=== PATIENT | female | born 1990 | race Caucasian/White ===

== ENCOUNTER 2023-12-05 18:33 | Emergency (ER) | payer OTHER ==
[~2023-12-05] VITALS: Ht 162.6 cm; Wt 85.5 kg
[2023-12-05 18:34] VITALS: BP 136/74; TEMP 98.8; O2SAT 100
[2023-12-05] MEDS: LIDOCAINE 5% (LIDODERM) PATCH TD ONE (20:15)
== END 2023-12-05 22:59 | disposition home or self-care (01) ==
LOC: M ED 18:33
DX: O44.02 Complete placenta previa NOS or without hemorrhage, second trimester (principal); Z3A.19 19 weeks gestation of pregnancy; Z91.030 Bee allergy status

== ENCOUNTER 2024-01-16 20:34 | Emergency (ER) | payer OTHER ==
[~2024-01-16] VITALS: Ht 162.6 cm; Wt 91.8 kg
[2024-01-16 20:34] VITALS: BP 136/73; TEMP 98; O2SAT 99
[2024-01-16] MEDS ORDERED: METO1TAB87 PO (22:14)
[2024-01-16] MEDS ORDERED: PRENTAB9 PO (22:14)
[2024-01-16] MEDS ORDERED: ECOT81TA5 PO (22:14)
[2024-01-16] MEDS ORDERED: COLA100C5 PO (22:14)
[2024-01-16 23:23] LABS: BASO % 0.2 % (0.0-1.0); EOS # 0.2 10^3/uL (0.0-0.5); EOS % 1.7 % (0.0-3.0); HEMATOCRIT 34.5 % (36.0-47.0); HEMOGLOBIN 11.5 g/dl (12.0-15.5); LYMPH # 1.2 10^3/uL (1.5-5.0); LYMPH % 9.4 % (24.0-44.0); MEAN CORPUSCULAR HEMOGLOBIN 30.9 pg (27.0-33.0); MEAN CORPUSCULAR HGB CONC 33.3 g/dl (32.0-36.5); MEAN CORPUSCULAR VOLUME 92.7 fl (80.0-96.0); MONO # 0.9 10^3/uL (0.0-0.8); MONO % 6.8 % (2.0-8.0); NEUTROPHILS # 10.7 10^3/uL (1.5-8.5); NEUTROPHILS % 81.6 % (36.0-66.0); PLATELET COUNT, AUTOMATED 218 10^3/uL (150-450); RED BLOOD COUNT 3.72 10^6/uL (4.00-5.40); WHITE BLOOD COUNT 13.2 10^3/uL (4.0-10.0)
[2024-01-16 23:35] LABS: ALBUMIN 2.9 G/DL (3.2-5.2); ALKALINE PHOSPHATASE 70 U/L (46-116); ALT/SGPT 18 U/L (7.0-40); AST/SGOT 16 U/L (<34); BILIRUBIN,TOTAL 0.3 MG/DL (0.3-1.2); BLOOD UREA NITROGEN 9 MG/DL (9-23); CALCIUM LEVEL 8.3 MG/DL (8.5-10.1); CARBON DIOXIDE LEVEL 26 MMOL/L (20-31); CHLORIDE LEVEL 107 MMOL/L (98-107); CREATININE FOR GFR 0.51 MG/DL (0.55-1.30); GLOMERULAR FILTRATION RATE > 60.0 (>60); GLUCOSE, FASTING 90 MG/DL (60-100); MAGNESIUM LEVEL 1.8 MG/DL (1.8-2.4); POTASSIUM SERUM 3.5 MMOL/L (3.5-5.1); SODIUM LEVEL 138 MMOL/L (136-145); TOTAL PROTEIN 6.8 G/DL (5.7-8.2)
== END 2024-01-16 20:48 | disposition admitted as inpatient to this hospital (09) ==
LOC: M ED 20:34
DX: Z53.21 Procedure and treatment not carried out due to patient leaving prior to being seen by health care provider (principal)

== ENCOUNTER 2024-01-16 21:52 | Outpatient (CLI) | payer OTHER ==
[~2024-01-16] VITALS: Ht 162.6 cm; Wt 91.4 kg
[2024-01-16 22:07] VITALS: BP 129/69
[2024-01-16] MEDS ORDERED: COLA100C5 PO (22:14)
[2024-01-16] MEDS ORDERED: METO1TAB87 PO (22:14)
[2024-01-16] MEDS ORDERED: ECOT81TA5 PO (22:14)
[2024-01-16] MEDS ORDERED: PRENTAB9 PO (22:14)
[2024-01-16] MEDS ORDERED: HOME MED LIST COMPLETE! XX SCH (22:20)
[2024-01-16] MEDS ORDERED: LR 1,000 ML IV ONE (22:35)
[2024-01-16 22:49] LABS: APPEARANCE, URINE CLEAR (CLEAR); BACTERIA, URINE AUTO NEGATIVE (NEGATIVE); BILIRUBIN, URINE AUTO NEGATIVE (NEGATIVE); BLOOD, URINE BLOOD NEGATIVE (NEGATIVE); COLOR, URINE COLORLESS (YELLOW); GLUCOSE, URINE (UA) AUTO NEGATIVE (NEGATIVE); KETONE, URINE AUTO NEGATIVE (NEGATIVE); LEUKOCYTE ESTERASE, URINE AUTO NEGATIVE (NEGATIVE); NITRITE, URINE AUTO NEGATIVE (NEGATIVE); PROTEIN, URINE AUTO NEGATIVE (NEGATIVE); RBC, URINE AUTO 0 /HPF (0-3); SPECIFIC GRAVITY URINE AUTO 1.003 (1.002-1.035); SQUAMOUS EPITHELIAL CELL UR AU 0 /HPF (0-6); UROBILINOGEN, URINE AUTO 0.2 mg/dL (0.0-2.0); WBC, URINE AUTO 0 /HPF (0-3)
[2024-01-16 23:14] LABS: BASO % 0.2 % (0.0-1.0); EOS # 0.2 10^3/uL (0.0-0.5); EOS % 1.7 % (0.0-3.0); HEMATOCRIT 34.4 % (36.0-47.0); HEMOGLOBIN 11.5 g/dl (12.0-15.5); LYMPH # 1.3 10^3/uL (1.5-5.0); LYMPH % 9.7 % (24.0-44.0); MEAN CORPUSCULAR HEMOGLOBIN 30.9 pg (27.0-33.0); MEAN CORPUSCULAR HGB CONC 33.4 g/dl (32.0-36.5); MEAN CORPUSCULAR VOLUME 92.5 fl (80.0-96.0); MONO # 0.9 10^3/uL (0.0-0.8); MONO % 6.7 % (2.0-8.0); NEUTROPHILS # 10.8 10^3/uL (1.5-8.5); NEUTROPHILS % 81.3 % (36.0-66.0); PLATELET COUNT, AUTOMATED 210 10^3/uL (150-450); RED BLOOD COUNT 3.72 10^6/uL (4.00-5.40); WHITE BLOOD COUNT 13.3 10^3/uL (4.0-10.0)
[2024-01-16 23:45] LABS: ALKALINE PHOSPHATASE 70 U/L (46-116); ALT/SGPT 19 U/L (7.0-40); AST/SGOT 19 U/L (<34); BILIRUBIN,TOTAL 0.3 MG/DL (0.3-1.2); BLOOD UREA NITROGEN 9 MG/DL (9-23); CALCIUM LEVEL 8.7 MG/DL (8.5-10.1); CARBON DIOXIDE LEVEL 25 MMOL/L (20-31); CHLORIDE LEVEL 106 MMOL/L (98-107); CREATININE FOR GFR 0.51 MG/DL (0.55-1.30); GLOMERULAR FILTRATION RATE > 60.0 (>60); GLUCOSE, FASTING 88 MG/DL (60-100); POTASSIUM SERUM 3.5 MMOL/L (3.5-5.1); SODIUM LEVEL 136 MMOL/L (136-145); TOTAL PROTEIN 6.8 G/DL (5.7-8.2)
[2024-01-16] MEDS: PERCOCET 5MG/325MG TAB PO ONE (23:58)
[2024-01-17 04:23] VITALS: BP 112/53
[2024-01-18] MEDS ORDERED: cefTRIAXone SOD 1 GM in D5W MINI-BAG PLUS 50 ML IV ONE (08:00)
[2024-01-18] MEDS ORDERED: SYNT50TA PO (09:17)
[2024-01-18] MEDS ORDERED: CEPH500T PO (17:54)
== END 2024-01-17 04:49 | disposition home or self-care (01) ==
LOC: M LDO 21:52
PROVIDERS: ATTEND Obstetrics & Gynecology
DX: O26.893 Other specified pregnancy related conditions, third trimester (principal); M54.50 Low back pain, unspecified; O99.612 Diseases of the digestive system complicating pregnancy, second trimester; K59.00 Constipation, unspecified; Z3A.25 25 weeks gestation of pregnancy; O44.02 Complete placenta previa NOS or without hemorrhage, second trimester; Z91.048 Other nonmedicinal substance allergy status; O09.812 Supervision of pregnancy resulting from assisted reproductive technology, second trimester; Z79.82 Long term (current) use of aspirin; Z79.890 Hormone replacement therapy; Z79.899 Other long term (current) drug therapy
CPT/HCPCS: 59025; 76775; 76815; 80053; 81001; 82731; 83735; 85025; 86850; 86900; 86901; 99281; G0463

== ENCOUNTER 2024-01-17 21:17 | Outpatient (CLI) | payer OTHER ==
[~2024-01-17] VITALS: Ht 162.6 cm; Wt 90.7 kg
[~2024-01-17 21:17] MED LIST: COLA100C5 PO; ECOT81TA5 PO; METO1TAB87 PO; PRENTAB9 PO
[2024-01-17 21:35] VITALS: BP 124/71
[2024-01-17 22:47] LABS: BASO % 0.2 % (0.0-1.0); EOS # 0.3 10^3/uL (0.0-0.5); HEMOGLOBIN 11.9 g/dl (12.0-15.5); LYMPH # 1.4 10^3/uL (1.5-5.0); LYMPH % 10.2 % (24.0-44.0); MEAN CORPUSCULAR HEMOGLOBIN 30.5 pg (27.0-33.0); MEAN CORPUSCULAR HGB CONC 33.1 g/dl (32.0-36.5); MEAN CORPUSCULAR VOLUME 92.3 fl (80.0-96.0); MONO # 0.8 10^3/uL (0.0-0.8); MONO % 6.2 % (2.0-8.0); NEUTROPHILS # 10.8 10^3/uL (1.5-8.5); NEUTROPHILS % 80.9 % (36.0-66.0); PLATELET COUNT, AUTOMATED 213 10^3/uL (150-450); WHITE BLOOD COUNT 13.3 10^3/uL (4.0-10.0)
[2024-01-17] MEDS: MORPHINE 10 MG/ML 1ML VIAL SC ONE (23:30)
[2024-01-17] MEDS: MORPHINE 10 MG/ML 1ML VIAL IV ONE (23:31)
[2024-01-17] MEDS: LR 1,000 ML IV ONE (23:31)
[2024-01-17] MEDS: PROMETHAZINE 25MG/ML 1ML VIAL IV ONE (23:31)
[2024-01-17] MEDS: LR 1,000 ML IV SCH (23:32)
[2024-01-17 23:47] LABS: BARBITURATES URINE REFLEX NEGATIVE (NEGATIVE); COCAINE METABOLITE URINE REFLE NEGATIVE (NEGATIVE); METHADONE URINE REFLEX NEGATIVE (NEGATIVE); OPIATES URINE REFLEX NEGATIVE (NEGATIVE); PHENCYCLIDINE URINE REFLEX NEGATIVE (NEGATIVE)
[2024-01-17 23:48] LABS: AMPHETAMINES URINE REFLEX NEGATIVE (NEGATIVE); BENZODIAZEPINES URINE REFLEX NEGATIVE (NEGATIVE); CANNABINOIDS URINE REFLEX NEGATIVE (NEGATIVE)
[2024-01-18] VITALS (12 sets, daily range): BP systolic 91–137; BP diastolic 50–78; TEMP 97.6
[2024-01-18] MEDS: cefTRIAXone SOD 1 GM in D5W MINI-BAG PLUS 50 ML IV ONE (07:54)
[2024-01-18] MEDS ORDERED: SYNT50TA PO (09:17)
[2024-01-18 13:11] LABS: Trichomonas vaginalis (AMP) NOT DETECTED (NEGATIVE)
[2024-01-18 13:34] LABS: GC DNA AMPLIFICATION NEGATIVE (NEGATIVE)
[2024-01-18 15:38] LABS: HEMATOCRIT 35.8 % (36.0-47.0); HEMOGLOBIN 11.9 g/dl (12.0-15.5); MEAN CORPUSCULAR HGB CONC 33.2 g/dl (32.0-36.5); MEAN CORPUSCULAR VOLUME 93.2 fl (80.0-96.0); PLATELET COUNT, AUTOMATED 202 10^3/uL (150-450); RED BLOOD COUNT 3.84 10^6/uL (4.00-5.40); WHITE BLOOD COUNT 15.2 10^3/uL (4.0-10.0)
[2024-01-18] MEDS ORDERED: CEPH500T PO (17:54)
== END 2024-01-18 17:19 | disposition home or self-care (01) ==
LOC: M LDO 21:17
PROVIDERS: ATTEND Obstetrics & Gynecology
DX: O26.892 Other specified pregnancy related conditions, second trimester (principal); R10.2 Pelvic and perineal pain; Z3A.25 25 weeks gestation of pregnancy; Z79.890 Hormone replacement therapy; Z79.82 Long term (current) use of aspirin; Z91.030 Bee allergy status
CPT/HCPCS: 36415; 59025; 74181; 76815; 76817; 80307; 81001; 85025; 85027; 87081; 87661; 87810; 87850; 93970; 96365; 96366; 96372; 96375; G0463; J0696; J2550

== ENCOUNTER → 2024-02-05 | Outpatient (REF) | payer OTHER ==
[~2024-02-05] MED LIST changes: +CEPH500T PO; +SYNT50TA PO
[2024-02-05 18:09] LABS: APPEARANCE, URINE CLEAR (CLEAR); BACTERIA, URINE AUTO NEGATIVE (NEGATIVE); BILIRUBIN, URINE AUTO NEGATIVE (NEGATIVE); BLOOD, URINE BLOOD NEGATIVE (NEGATIVE); COLOR, URINE STRAW (YELLOW); GLUCOSE, URINE (UA) AUTO NEGATIVE (NEGATIVE); KETONE, URINE AUTO NEGATIVE (NEGATIVE); LEUKOCYTE ESTERASE, URINE AUTO NEGATIVE (NEGATIVE); MUCUS, URINE SMALL (NEGATIVE); NITRITE, URINE AUTO NEGATIVE (NEGATIVE); PROTEIN, URINE AUTO NEGATIVE (NEGATIVE); RBC, URINE AUTO 0 /HPF (0-3); SPECIFIC GRAVITY URINE AUTO 1.006 (1.002-1.035); SQUAMOUS EPITHELIAL CELL UR AU 0 /HPF (0-6); UROBILINOGEN, URINE AUTO 0.2 mg/dL (0.0-2.0); WBC, URINE AUTO 0 /HPF (0-3)
== END ==
LOC: M SMT 17:14
PROVIDERS: ATTEND Urology
DX: N13.30 Unspecified hydronephrosis (principal)

== ENCOUNTER 2024-02-10 10:57 | Outpatient (CLI) | payer OTHER ==
[~2024-02-10] VITALS: Ht 162.6 cm; Wt 94.6 kg
[2024-02-10 11:14] VITALS: BP 120/72
[2024-02-10] MEDS ORDERED: HOME MED LIST COMPLETE! XX SCH (12:00)
[2024-02-10 13:24] VITALS: BP 120/63
[2024-02-10 16:00] VITALS: BP 136/71
[2024-02-10 18:01] VITALS: BP 121/65
== END 2024-02-10 20:50 | disposition home or self-care (01) ==
LOC: M LDO 10:57
PROVIDERS: ATTEND Advanced Practice Midwife
DX: O44.03 Complete placenta previa NOS or without hemorrhage, third trimester (principal); O26.853 Spotting complicating pregnancy, third trimester; O09.813 Supervision of pregnancy resulting from assisted reproductive technology, third trimester; O99.283 Endocrine, nutritional and metabolic diseases complicating pregnancy, third trimester; E03.9 Hypothyroidism, unspecified; Z3A.28 28 weeks gestation of pregnancy; Z91.030 Bee allergy status
CPT/HCPCS: 59025; 76816; 76817; 76820; G0463

== ENCOUNTER 2024-02-15 04:22 | Outpatient (CLI) | payer OTHER ==
[~2024-02-15] VITALS: Ht 162.6 cm; Wt 96.0 kg
[2024-02-15 04:39] VITALS: BP 124/74
== END 2024-02-15 05:45 | disposition home or self-care (01) ==
LOC: M LDO 04:22
PROVIDERS: ATTEND Specialist
DX: O26.853 Spotting complicating pregnancy, third trimester (principal); O44.03 Complete placenta previa NOS or without hemorrhage, third trimester; O09.813 Supervision of pregnancy resulting from assisted reproductive technology, third trimester; O99.283 Endocrine, nutritional and metabolic diseases complicating pregnancy, third trimester; O99.413 Diseases of the circulatory system complicating pregnancy, third trimester; E03.9 Hypothyroidism, unspecified; I48.91 Unspecified atrial fibrillation; Z91.030 Bee allergy status; Z3A.29 29 weeks gestation of pregnancy
CPT/HCPCS: 59025; G0463

== ENCOUNTER → 2024-02-16 | Outpatient (REF) | payer OTHER ==
[~2024-02-16] MED LIST changes: +ACET325C5 PO; +LEVO75TA4 PO
== END ==
LOC: M LAB REF 15:11
PROVIDERS: ATTEND Internal Medicine Endocrinology, Diabetes & Metabolism
DX: E04.2 Nontoxic multinodular goiter (principal)

== ENCOUNTER 2024-02-24 18:45 | Outpatient (CLI) | payer OTHER ==
[~2024-02-24] VITALS: Ht 162.6 cm; Wt 98.0 kg
[~2024-02-24 18:45] MED LIST changes: -ACET325C5 PO; -LEVO75TA4 PO
[2024-02-24] MEDS ORDERED: ACET325C5 PO (18:58)
[2024-02-24 19:02] VITALS: BP 133/80
[2024-02-24] MEDS ORDERED: HOME MED LIST COMPLETE! XX SCH (19:05)
== END 2024-02-24 20:45 | disposition home or self-care (01) ==
LOC: M LDO 18:45
PROVIDERS: ATTEND Advanced Practice Midwife
DX: O26.893 Other specified pregnancy related conditions, third trimester (principal); O44.03 Complete placenta previa NOS or without hemorrhage, third trimester; O99.43 Diseases of the circulatory system complicating the puerperium; O99.283 Endocrine, nutritional and metabolic diseases complicating pregnancy, third trimester; R51.9 Headache, unspecified; E03.9 Hypothyroidism, unspecified; I48.91 Unspecified atrial fibrillation; Z3A.30 30 weeks gestation of pregnancy
CPT/HCPCS: 59025; G0463

== ENCOUNTER 2024-03-01 14:46 | Observation (INO) | payer OTHER ==
[2024-03-01] VITALS (7 sets, daily range): BP systolic 104–140; BP diastolic 53–74
[~2024-03-01] VITALS: Ht 162.6 cm; Wt 95.0 kg
[~2024-03-01 14:46] MED LIST changes: +ACET325C5 PO
[2024-03-01] MEDS ORDERED: LEVO75TA4 PO (14:59)
[2024-03-01] MEDS ORDERED: HOME MED LIST COMPLETE! XX SCH (15:00)
[2024-03-01] MEDS: BETAMETHASONE SOLUSPAN 6MG/ML 5ML VIAL IM SCH (18:13)
[2024-03-01] MEDS: METOPROLOL TART 12.5 MG PER 1/2 TAB PO SCH (21:15)
[2024-03-01] MEDS: DOCUSATE SODIUM 100MG CAPSULE PO SCH (21:15)
[2024-03-01] MEDS: ASPIRIN 81MG ENTERIC TABLET PO SCH (21:15)
[2024-03-02 00:46] VITALS: BP 100/54
[2024-03-02 01:42] VITALS: BP 119/58
[2024-03-02 02:42] VITALS: BP 119/63
[2024-03-02 03:42] VITALS: BP 103/58
[2024-03-02 04:42] VITALS: BP 131/67
[2024-03-02] MEDS: LEVOTHYROXINE 75MCG TABLET (0.075MG) PO SCH (06:14)
[2024-03-02] MEDS: PRENATAL VITAMINS CHEWABLE TABLET PO SCH (09:24)
[2024-03-02 14:20] VITALS: BP 122/70
[2024-03-02 21:01] LABS: HEMATOCRIT 32.1 % (36.0-47.0); HEMOGLOBIN 10.7 g/dl (12.0-15.5); MEAN CORPUSCULAR HEMOGLOBIN 29.1 pg (27.0-33.0); MEAN CORPUSCULAR HGB CONC 33.3 g/dl (32.0-36.5); MEAN CORPUSCULAR VOLUME 87.2 fl (80.0-96.0); PLATELET COUNT, AUTOMATED 219 10^3/uL (150-450); RED BLOOD COUNT 3.68 10^6/uL (4.00-5.40); WHITE BLOOD COUNT 13.3 10^3/uL (4.0-10.0)
[2024-03-02 21:18] LABS: INR 0.97; PARTIAL THROMBOPLASTIN TIME 24.4 SECONDS (24.8-34.2); PROTHROMBIN TIME 12.6 SECONDS (12.5-14.5)
== END 2024-03-02 21:00 | disposition home or self-care (01) ==
LOC: M LDO 14:46 → M LDI 18:00
PROVIDERS: ADMIT Obstetrics & Gynecology; ATTEND Obstetrics & Gynecology
DX: O26.853 Spotting complicating pregnancy, third trimester (principal); O44.23 Partial placenta previa NOS or without hemorrhage, third trimester; O99.283 Endocrine, nutritional and metabolic diseases complicating pregnancy, third trimester; Z3A.32 32 weeks gestation of pregnancy; E22.1 Hyperprolactinemia; Z79.899 Other long term (current) drug therapy; Z79.82 Long term (current) use of aspirin
CPT/HCPCS: 36415; 59025; 76816; 76820; 85027; 85384; 85460; 85610; 85730; 86850; 86900; 86901; 96372; G0463; J0702

== ENCOUNTER 2024-03-04 05:54 | Inpatient (IN) | payer OTHER ==
[~2024-03-04] VITALS: Ht 162.6 cm; Wt 95.6 kg
[2024-03-04] VITALS (35 sets, daily range): BP systolic 92–133; BP diastolic 50–75
[~2024-03-04 05:54] MED LIST changes: +LEVO75TA4 PO
[2024-03-04] MEDS: LEVOTHYROXINE 75MCG TABLET (0.075MG) PO SCH (06:00)
[2024-03-04] MEDS ORDERED: MAGNESIUM *L&D* 4GM/100ML BAG (40MG/ML) As Ordered ONE (06:27)
[2024-03-04 06:34] LABS: HEMATOCRIT 34.2 % (36.0-47.0); HEMOGLOBIN 11.1 g/dl (12.0-15.5); MEAN CORPUSCULAR HGB CONC 32.5 g/dl (32.0-36.5); MEAN CORPUSCULAR VOLUME 89.3 fl (80.0-96.0); PLATELET COUNT, AUTOMATED 198 10^3/uL (150-450); RED BLOOD COUNT 3.83 10^6/uL (4.00-5.40); WHITE BLOOD COUNT 9.8 10^3/uL (4.0-10.0)
[2024-03-04] MEDS ORDERED: LIDOCAINE 1% MDV 20ML VIAL INFIL PRN (06:50)
[2024-03-04] MEDS ORDERED: OXYTOCIN DRIP 30 UNITS in IV 1 EA IV PRN (06:50)
[2024-03-04] MEDS ORDERED: ONDANSETRON 4MG 2ML VIAL IV PRN (06:50)
[2024-03-04] MEDS: LR 1,000 ML IV SCH (07:04)
[2024-03-04] MEDS ORDERED: MAGNESIUM SULFATE 4% INJ 20GM/500ML (40MG/ML) As Ordered ONE (07:06)
[2024-03-04 07:10] LABS: INR 0.94; PROTHROMBIN TIME 12.3 SECONDS (12.5-14.5)
[2024-03-04] MEDS: MAGNESIUM *L&D* 4GM/100ML BAG (40MG/ML) IV ONE (07:30)
[2024-03-04] MEDS: MAG Sulf (OBGYN) 20GM/500ML 20,000 MG in IV 1 EA IV SCH (07:35)
[2024-03-04] MEDS ORDERED: HOME MED LIST COMPLETE! XX SCH (07:40)
[2024-03-04 11:41] LABS: HEMOGLOBIN 10.7 g/dl (12.0-15.5); MEAN CORPUSCULAR HEMOGLOBIN 28.9 pg (27.0-33.0); MEAN CORPUSCULAR HGB CONC 32.4 g/dl (32.0-36.5); MEAN CORPUSCULAR VOLUME 89.2 fl (80.0-96.0); PLATELET COUNT, AUTOMATED 189 10^3/uL (150-450); WHITE BLOOD COUNT 11.8 10^3/uL (4.0-10.0)
[2024-03-04 12:03] LABS: PARTIAL THROMBOPLASTIN TIME 23.5 SECONDS (24.8-34.2); PROTHROMBIN TIME 12.9 SECONDS (12.5-14.5)
[2024-03-04 18:15] LABS: HEMATOCRIT 31.3 % (36.0-47.0); HEMOGLOBIN 10.1 g/dl (12.0-15.5); MEAN CORPUSCULAR HEMOGLOBIN 28.5 pg (27.0-33.0); MEAN CORPUSCULAR HGB CONC 32.3 g/dl (32.0-36.5); MEAN CORPUSCULAR VOLUME 88.4 fl (80.0-96.0); PLATELET COUNT, AUTOMATED 180 10^3/uL (150-450); RED BLOOD COUNT 3.54 10^6/uL (4.00-5.40); WHITE BLOOD COUNT 10.4 10^3/uL (4.0-10.0)
[2024-03-04] MEDS: ACETAMINOPHEN 500 MG TAB PO PRN (18:26)
[2024-03-04 18:35] LABS: PARTIAL THROMBOPLASTIN TIME 23.6 SECONDS (24.8-34.2); PROTHROMBIN TIME 12.9 SECONDS (12.5-14.5)
[2024-03-04] MEDS: METOPROLOL TART 12.5 MG PER 1/2 TAB PO SCH (21:01)
[2024-03-05] VITALS (17 sets, daily range): BP systolic 98–129; BP diastolic 51–71
[2024-03-05 07:17] LABS: HEMATOCRIT 31.6 % (36.0-47.0); HEMOGLOBIN 10.3 g/dl (12.0-15.5); MEAN CORPUSCULAR HEMOGLOBIN 28.9 pg (27.0-33.0); MEAN CORPUSCULAR HGB CONC 32.6 g/dl (32.0-36.5); MEAN CORPUSCULAR VOLUME 88.5 fl (80.0-96.0); PLATELET COUNT, AUTOMATED 170 10^3/uL (150-450); RED BLOOD COUNT 3.57 10^6/uL (4.00-5.40); WHITE BLOOD COUNT 8.1 10^3/uL (4.0-10.0)
[2024-03-05 07:37] LABS: INR 0.97; PROTHROMBIN TIME 12.6 SECONDS (12.5-14.5)
[2024-03-05 07:44] LABS: INR 0.98; PARTIAL THROMBOPLASTIN TIME 24.1 SECONDS (24.8-34.2); PROTHROMBIN TIME 12.7 SECONDS (12.5-14.5)
[2024-03-05] MEDS: DOCUSATE SODIUM 100MG CAPSULE PO SCH (12:22)
[2024-03-05] MEDS: MIRALAX *UNIT DOSE* 17GM PACKET PO PRN (16:02)
[2024-03-06] VITALS (8 sets, daily range): BP systolic 95–136; BP diastolic 51–70
[2024-03-07 05:04] VITALS: BP 124/78
[2024-03-07 09:39] VITALS: BP 129/60
[2024-03-07 12:52] LABS: BASO % 0.3 % (0.0-1.0); EOS # 0.3 10^3/uL (0.0-0.5); EOS % 2.3 % (0.0-3.0); HEMATOCRIT 34.2 % (36.0-47.0); HEMOGLOBIN 11.2 g/dl (12.0-15.5); LYMPH # 1.5 10^3/uL (1.5-5.0); LYMPH % 12.6 % (24.0-44.0); MEAN CORPUSCULAR HEMOGLOBIN 28.1 pg (27.0-33.0); MEAN CORPUSCULAR HGB CONC 32.7 g/dl (32.0-36.5); MEAN CORPUSCULAR VOLUME 85.9 fl (80.0-96.0); MONO # 0.8 10^3/uL (0.0-0.8); MONO % 6.8 % (2.0-8.0); NEUTROPHILS % 77.7 % (36.0-66.0); PLATELET COUNT, AUTOMATED 192 10^3/uL (150-450); RED BLOOD COUNT 3.98 10^6/uL (4.00-5.40); WHITE BLOOD COUNT 11.5 10^3/uL (4.0-10.0)
[2024-03-07 13:05] LABS: PROTHROMBIN TIME 12.9 SECONDS (12.5-14.5)
[2024-03-07] MEDS: ANUSOL HC CREAM 30GM TOP PRN (15:40)
[2024-03-07 20:21] VITALS: BP 115/70
[2024-03-07] MEDS ORDERED: ANUSOL HC CREAM 30GM TOP SCH (21:00)
[2024-03-08] VITALS (10 sets, daily range): BP systolic 114–158; BP diastolic 58–80
[2024-03-09 03:32] VITALS: BP 117/65
[2024-03-09 07:43] VITALS: BP 116/78
[2024-03-09 12:51] VITALS: BP 120/73
[2024-03-09 15:31] VITALS: BP 144/72
[2024-03-09 15:43] VITALS: BP 129/67
[2024-03-09 20:56] VITALS: BP 126/68
[2024-03-10] VITALS (8 sets, daily range): BP systolic 117–141; BP diastolic 59–80
[2024-03-10 05:56] LABS: HEMATOCRIT 32.5 % (36.0-47.0); HEMOGLOBIN 10.4 g/dl (12.0-15.5); MEAN CORPUSCULAR HEMOGLOBIN 28.1 pg (27.0-33.0); MEAN CORPUSCULAR VOLUME 87.8 fl (80.0-96.0); PLATELET COUNT, AUTOMATED 157 10^3/uL (150-450); WHITE BLOOD COUNT 9.6 10^3/uL (4.0-10.0)
[2024-03-11 00:39] VITALS: BP 109/58
[2024-03-11 06:09] VITALS: BP 120/59
[2024-03-11 08:32] VITALS: BP 125/79
[2024-03-11 12:57] VITALS: BP 128/89
[2024-03-11] MEDS: SLF 3 ML SYR IV SCH (13:31)
[2024-03-11 18:27] VITALS: BP 124/71
[2024-03-11 20:16] VITALS: BP 122/63
[2024-03-12] VITALS (8 sets, daily range): BP systolic 118–140; BP diastolic 58–74
[2024-03-12 10:45] LABS: HEMATOCRIT 31.8 % (36.0-47.0); HEMOGLOBIN 10.4 g/dl (12.0-15.5); MEAN CORPUSCULAR HEMOGLOBIN 28.6 pg (27.0-33.0); MEAN CORPUSCULAR HGB CONC 32.7 g/dl (32.0-36.5); MEAN CORPUSCULAR VOLUME 87.4 fl (80.0-96.0); PLATELET COUNT, AUTOMATED 162 10^3/uL (150-450); RED BLOOD COUNT 3.64 10^6/uL (4.00-5.40); WHITE BLOOD COUNT 9.9 10^3/uL (4.0-10.0)
[2024-03-12] MEDS: SLF 3 ML SYR IV PRN (17:01)
[2024-03-12] MEDS: diphenhydrAMINE CREAM 30GM TOP PRN (19:02)
[2024-03-13] VITALS (8 sets, daily range): BP systolic 119–132; BP diastolic 58–80
[2024-03-13] MEDS ORDERED: diphenhydrAMINE 25MG CAP PO PRN (10:35)
[2024-03-13] MEDS ORDERED: diphenhydrAMINE 25MG CAP PO SCH (12:00)
[2024-03-14] VITALS (7 sets, daily range): BP systolic 112–125; BP diastolic 56–83
[2024-03-14] MEDS: METOPROLOL TART 25 MG TABLET PO ONE (18:14)
[2024-03-15] VITALS (10 sets, daily range): BP systolic 110–122; BP diastolic 56–65
[2024-03-16 01:00] VITALS: BP 114/64
[2024-03-16 05:54] VITALS: BP 128/60
[2024-03-17 08:31] VITALS: BP 116/60
[2024-03-17 12:40] VITALS: BP 115/68
[2024-03-17 17:12] VITALS: BP 128/70
[2024-03-17 21:26] VITALS: BP 124/58
[2024-03-18] VITALS (11 sets, daily range): BP systolic 109–143; BP diastolic 55–81; TEMP 97.9; O2SAT 95–100
[2024-03-18] MEDS ORDERED: TRANEXAMIC ACID INJection 1,000 MG in NS 100 ML IV PRN (02:20)
[2024-03-18] MEDS ORDERED: OXYTOCIN DRIP 30 UNITS in IV 1 EA IV PRN (02:20)
[2024-03-18] MEDS ORDERED: CARBOPROST TROMETHAMINE 250 MCG/ML AMP IM PRN (02:20)
[2024-03-18] MEDS ORDERED: METHYLERGONOVINE MALEATE 0.2MG/ML 1ML VIAL IM PRN (02:20)
[2024-03-18 05:52] LABS: HEMATOCRIT 30.7 % (36.0-47.0); HEMOGLOBIN 9.9 g/dl (12.0-15.5); MEAN CORPUSCULAR HEMOGLOBIN 27.9 pg (27.0-33.0); MEAN CORPUSCULAR HGB CONC 32.2 g/dl (32.0-36.5); MEAN CORPUSCULAR VOLUME 86.5 fl (80.0-96.0); PLATELET COUNT, AUTOMATED 131 10^3/uL (150-450); RED BLOOD COUNT 3.55 10^6/uL (4.00-5.40); WHITE BLOOD COUNT 7.6 10^3/uL (4.0-10.0)
[2024-03-18] MEDS: LACTATED RINGER'S 1000 ML IV STA (07:27)
[2024-03-18] MEDS: BICITRA 30ML SOLN UDC PO ONE (08:17)
[2024-03-18] MEDS: ceFAZolin SOD 2 GM in IV 1 EA IV ONE (08:17)
[2024-03-18] MEDS ORDERED: OXYTOCIN 30UNITS IN 0.9% NaCl 500ML IV BAG As Ordered ONE (10:11)
[2024-03-18] MEDS ORDERED: MORPHINE PRES-FREE INJ 10 MG/10 ML VIAL As Ordered ONE (10:11)
[2024-03-18] MEDS ORDERED: PHENYLephrine 500MCG 5ML (100MCG/ML) SYRINGE As Ordered ONE (10:17)
[2024-03-18] MEDS ORDERED: ONDANSETRON 4MG 2ML VIAL As Ordered ONE (10:17)
[2024-03-18] MEDS ORDERED: ePHEDrine SULFATE 25 MG/5 ML(5MG/ML) SYRINGE As Ordered ONE (10:17)
[2024-03-18 10:28] LABS: CORD GAS ABE V -1.6; CORD GAS HCO3 V 23.8 MMOL/L; CORD GAS O2 SAT V 41.3 %; CORD GAS PCO2 V 42.5 mmHg; CORD GAS PH V 7.366 UNITS; CORD GAS TCO2 V 25.1 MMOL/L
[2024-03-18 10:30] LABS: CORD GAS ABE A -0.8; CORD GAS HCO3 A 25.3 MMOL/L; CORD GAS O2 SAT A 26.4 %; CORD GAS PCO2 A 47.6 mmHg; CORD GAS PH A 7.344 UNITS; CORD GAS PO2 A 13.6 mmHg; CORD GAS SBC A 22.3 MMOL/L; CORD GAS TCO2 A 26.8 MMOL/L
[2024-03-18] MEDS ORDERED: KETOROLAC 60MG 2ML VIAL As Ordered ONE (10:42)
[2024-03-18] MEDS ORDERED: oxyCODONE 5MG TAB PO PRN (10:50)
[2024-03-18] MEDS ORDERED: METOCLOPRAMIDE INJ 10MG/2ML VIAL IV PRN (11:10)
[2024-03-18] MEDS ORDERED: diphenhydrAMINE 50MG/ML VIAL IV PRN (11:10)
[2024-03-18] MEDS: SLF 3 ML SYR IV SCH (11:10)
[2024-03-18] MEDS ORDERED: NALOXONE INJ 0.4MG/1ML VIAL IV PRN ×2 (11:10)
[2024-03-18] MEDS ORDERED: **NOTE PATIENT COMMENT** MISC XX SCH (11:10)
[2024-03-18] MEDS ORDERED: ONDANSETRON 4MG 2ML VIAL IV PRN (11:10)
[2024-03-18] MEDS ORDERED: fentaNYL 100 MCG/2 ML INJECTION As Ordered ONE (11:15)
[2024-03-18] MEDS: fentaNYL 100 MCG/2 ML INJECTION IV PRN (11:20)
[2024-03-18] MEDS: OXYTOCIN DRIP 30 UNITS in IV 1 EA IV SCH (11:37)
[2024-03-18] MEDS: LR 1,000 ML IV SCH (11:40)
[2024-03-18] MEDS: oxyCODONE 5MG TAB PO PRN (14:55)
[2024-03-18] MEDS: KETOROLAC 30 MG/ML 1ML VIAL IV SCH (17:43)
[2024-03-19] VITALS (8 sets, daily range): BP systolic 102–120; BP diastolic 52–75; O2SAT 97–99
[2024-03-19 07:24] LABS: HEMATOCRIT 26.8 % (36.0-47.0); HEMOGLOBIN 8.5 g/dl (12.0-15.5); MEAN CORPUSCULAR HEMOGLOBIN 27.6 pg (27.0-33.0); MEAN CORPUSCULAR HGB CONC 31.7 g/dl (32.0-36.5); PLATELET COUNT, AUTOMATED 137 10^3/uL (150-450); RED BLOOD COUNT 3.08 10^6/uL (4.00-5.40); WHITE BLOOD COUNT 12.5 10^3/uL (4.0-10.0)
[2024-03-19] MEDS: SIMETHICONE 80MG CHEW TAB PO PRN (07:43)
[2024-03-19] MEDS: PRENATAL VITAMINS CHEWABLE TABLET PO SCH (10:00)
[2024-03-19] MEDS: FERROUS SULFATE 325MG TAB PO SCH (10:00)
[2024-03-19] MEDS: IBUPROFEN 800 MG TAB PO SCH (12:43)
[2024-03-20 02:00] VITALS: BP 115/55; O2SAT 99
[2024-03-20 05:39] VITALS: BP 113/61; O2SAT 100
[2024-03-20] MEDS ORDERED: OXYC-517 PO ×2 (08:05→20:16)
[2024-03-20 13:40] VITALS: BP 112/55; O2SAT 97
[2024-03-20 18:00] VITALS: BP 110/53; O2SAT 97
[2024-03-20] MEDS ORDERED: IBUP1TAB7 PO (20:14)
[2024-03-20] MEDS ORDERED: ACET-897 PO (20:14)
[2024-03-20 21:14] VITALS: BP 126/55
[2024-03-20] MEDS: MOM 30ML SUSPENSION UDC PO PRN (21:50)
[2024-03-21 06:05] VITALS: BP 107/58; O2SAT 98
== END 2024-03-21 16:00 | disposition home or self-care (01) | DRG 786 ==
LOC: M LDI 05:54 → M OBS 05:55 → M LDI 05:56 → M OBS 03-18 12:50
PROVIDERS: ADMIT Specialist; ATTEND Specialist
PROC: 10D00Z1 Extraction of Products of Conception, Low, Open Approach (ICD-10-PCS; principal; 2024-03-18 07:30)
DX: O44.13 Complete placenta previa with hemorrhage, third trimester (principal); O99.42 Diseases of the circulatory system complicating childbirth; Z3A.32 32 weeks gestation of pregnancy; I48.91 Unspecified atrial fibrillation; E03.9 Hypothyroidism, unspecified; O99.284 Endocrine, nutritional and metabolic diseases complicating childbirth; Z91.030 Bee allergy status; O09.819 Supervision of pregnancy resulting from assisted reproductive technology, unspecified trimester

== ENCOUNTER → 2024-03-31 | Outpatient (REF) | payer OTHER ==
[~2024-03-31] MED LIST changes: +ACET-897 PO; +IBUP1TAB7 PO; +OXYC-517 PO
== END ==
LOC: M LAB REF 15:05
PROVIDERS: ATTEND Internal Medicine Endocrinology, Diabetes & Metabolism
DX: E04.1 Nontoxic single thyroid nodule (principal)

== ENCOUNTER 2024-04-11 23:37 | Emergency (ER) | payer OTHER ==
[~2024-04-11] VITALS: Ht 162.6 cm; Wt 92.4 kg
[2024-04-12 00:53] LABS: BASO % 0.3 % (0.0-1.0); EOS # 0.1 10^3/uL (0.0-0.5); EOS % 0.7 % (0.0-3.0); HEMATOCRIT 32.5 % (36.0-47.0); HEMOGLOBIN 10.3 g/dl (12.0-15.5); LYMPH # 0.7 10^3/uL (1.5-5.0); LYMPH % 9.6 % (24.0-44.0); MEAN CORPUSCULAR HGB CONC 31.7 g/dl (32.0-36.5); MEAN CORPUSCULAR VOLUME 85.1 fl (80.0-96.0); MONO # 0.4 10^3/uL (0.0-0.8); MONO % 6.2 % (2.0-8.0); NEUTROPHILS # 5.8 10^3/uL (1.5-8.5); NEUTROPHILS % 83.1 % (36.0-66.0); PLATELET COUNT, AUTOMATED 181 10^3/uL (150-450); RED BLOOD COUNT 3.82 10^6/uL (4.00-5.40)
[2024-04-12 01:10] LABS: ERYTHROCYTE SEDIMENTATION RATE 28 mm/hr (0-20)
[2024-04-12 01:18] LABS: BLOOD UREA NITROGEN 21 MG/DL (9-23); CALCIUM LEVEL 7.8 MG/DL (8.5-10.1); CARBON DIOXIDE LEVEL 25 MMOL/L (20-31); CHLORIDE LEVEL 109 MMOL/L (98-107); CREATININE FOR GFR 0.77 MG/DL (0.55-1.30); GLOMERULAR FILTRATION RATE > 60.0 (>60); GLUCOSE, FASTING 100 MG/DL (60-100); POTASSIUM SERUM 3.7 MMOL/L (3.5-5.1); SODIUM LEVEL 138 MMOL/L (136-145)
[2024-04-12] MEDS: cefTRIAXone SOD 1 GM in DEXTROSE 5% (D5W) ADV/MINI-BAG 50 ML IV ONE (02:40)
[2024-04-12] MEDS: ACETAMINOPHEN 325 MG TAB PO ONE (02:40)
[2024-04-12 02:50] VITALS: BP 107/58
[2024-04-12] MEDS: METOPROLOL TART 25 MG TABLET PO ONE (02:50)
[2024-04-12] MEDS: NS 1,000 ML IV ONE (02:54)
[2024-04-12] MEDS ORDERED: CEPH500C PO (02:59)
[2024-04-12 04:15] VITALS: BP 96/51
[2024-04-12 04:59] LABS: APPEARANCE, URINE HAZY (CLEAR); BACTERIA, URINE AUTO NEGATIVE (NEGATIVE); BILIRUBIN, URINE AUTO NEGATIVE (NEGATIVE); BLOOD, URINE BLOOD 1+ (NEGATIVE); COLOR, URINE YELLOW (YELLOW); GLUCOSE, URINE (UA) AUTO NEGATIVE (NEGATIVE); KETONE, URINE AUTO NEGATIVE (NEGATIVE); LEUKOCYTE ESTERASE, URINE AUTO 3+ (NEGATIVE); MUCUS, URINE SMALL (NEGATIVE); NITRITE, URINE AUTO NEGATIVE (NEGATIVE); PROTEIN, URINE AUTO NEGATIVE (NEGATIVE); RBC, URINE AUTO 1 /HPF (0-3); SPECIFIC GRAVITY URINE AUTO 1.017 (1.002-1.035); SQUAMOUS EPITHELIAL CELL UR AU 2 /HPF (0-6); UROBILINOGEN, URINE AUTO 0.2 mg/dL (0.0-2.0); WBC, URINE AUTO 31 /HPF (0-3)
[2024-04-12 05:30] VITALS: O2SAT 98
[2024-04-12 05:31] VITALS: TEMP 101.5
== END 2024-04-12 06:10 | disposition home or self-care (01) ==
LOC: M ED 23:37
DX: N61.21 Granulomatous mastitis, right breast (principal); R00.0 Tachycardia, unspecified; I45.10 Unspecified right bundle-branch block; E03.9 Hypothyroidism, unspecified; Z79.82 Long term (current) use of aspirin; Z79.899 Other long term (current) drug therapy; Z79.2 Long term (current) use of antibiotics
CPT/HCPCS: 71045; 80048; 81001; 85025; 85652; 86140; 87040; 87486; 87581; 87633; 87798; 93005; 96361; 96374; 99284; J0696

== ENCOUNTER 2024-04-13 01:12 | Inpatient (IN) | payer OTHER ==
[~2024-04-13] VITALS: Ht 162.6 cm; Wt 92.4 kg
[~2024-04-13 01:12] MED LIST changes: +CEPH500C PO
[2024-04-13] MEDS ORDERED: MIDAZOLAM INJ 2MG/2ML VIAL As Ordered ONE (01:22)
[2024-04-13] MEDS ORDERED: ISOVUE-370 76% 100ML VIAL As Ordered ONE (01:25)
[2024-04-13] MEDS: MIDAZOLAM INJ 2MG/2ML VIAL IV STA (01:29)
[2024-04-13] MEDS: ACETAMINOPHEN *IV* 1,000 MG in IV 1 EA IV ONE (01:29)
[2024-04-13] MEDS: MIDAZOLAM INJ 2MG/2ML VIAL IV ONE (01:32)
[2024-04-13 01:35] LABS: VENOUS PARTIAL PRESSURE CO2 29.7 mmHg (38.0-50.0); VENOUS PARTIAL PRESSURE O2 79.9 mmHg (30.0-50.0); VENOUS PH 7.446 UNITS (7.330-7.430); VENOUS TOTAL CO2 20.9 MMOL/L (24.0-28.0)
[2024-04-13 01:39] LABS: BASO % 0.3 % (0.0-1.0); EOS % 0.1 % (0.0-3.0); HEMATOCRIT 32.4 % (36.0-47.0); HEMOGLOBIN 10.9 g/dl (12.0-15.5); LYMPH # 1.4 10^3/uL (1.5-5.0); LYMPH % 9.8 % (24.0-44.0); MEAN CORPUSCULAR HGB CONC 33.6 g/dl (32.0-36.5); MEAN CORPUSCULAR VOLUME 80.2 fl (80.0-96.0); MONO # 0.7 10^3/uL (0.0-0.8); MONO % 4.6 % (2.0-8.0); NEUTROPHILS % 84.1 % (36.0-66.0); PLATELET COUNT, AUTOMATED 165 10^3/uL (150-450); RED BLOOD COUNT 4.04 10^6/uL (4.00-5.40); WHITE BLOOD COUNT 14.3 10^3/uL (4.0-10.0)
[2024-04-13 01:53] LABS: INR 1.38; PROTHROMBIN TIME 17.2 SECONDS (12.5-14.5)
[2024-04-13] MEDS: NS 2,700 ML in IV 1 EA IV ONE (01:55)
[2024-04-13 02:06] LABS: AMYLASE 23 U/L (30-118)
[2024-04-13 02:21] LABS: ALKALINE PHOSPHATASE 49 U/L (35-104); ALT/SGPT 50 U/L (7.0-40); AST/SGOT 33 U/L (<34); BILIRUBIN,DIRECT 0.2 MG/DL (<0.4); BILIRUBIN,TOTAL 0.7 MG/DL (0.3-1.2); BLOOD UREA NITROGEN 15 MG/DL (9-23); CALCIUM LEVEL 8.3 MG/DL (8.5-10.1); CARBON DIOXIDE LEVEL 20 MMOL/L (20-31); CHLORIDE LEVEL 101 MMOL/L (98-107); CK-MB VALUE MASS < 1.0 NG/ML (<3.6); CPK CREATINE PHOSPHOKINASE 47 U/L (34-145); CREATININE FOR GFR 0.82 MG/DL (0.55-1.30); GLOMERULAR FILTRATION RATE > 60.0 (>60); GLUCOSE, FASTING 99 MG/DL (60-100); MB/CK RELATIVE INDEX 2.12 (< OR =4); POTASSIUM SERUM 2.9 MMOL/L (3.5-5.1); SODIUM LEVEL 130 MMOL/L (136-145); TOTAL PROTEIN 7.2 G/DL (5.7-8.2)
[2024-04-13] MEDS: CEFEPIME HCL 2 GM in DEXTROSE 5% (D5W) ADV/MINI-BAG 50 ML IV ONE (02:33)
[2024-04-13] MEDS ORDERED: VANCOMYCIN HCL 1,500 MG in IV FLUID PLACE HOLDER 1 EA IV ONE (02:45)
[2024-04-13] MEDS ORDERED: VANCOMYCIN 1,500 MG/300 ML IV BAG *LOAD IV ONE (02:50)
[2024-04-13] MEDS: KCL 10MEQ/100ML SWI (KRUN) 10 MEQ in IV 1 EA IV ONE ×2 (03:08→04:38)
[2024-04-13] MEDS ORDERED: LORazepam 2 MG/ML 1ML VIAL IV STA (03:37)
[2024-04-13] MEDS: LORazepam 2 MG/ML 1ML VIAL IV STA (04:14)
[2024-04-13 04:34] LABS: APPEARANCE, URINE CLEAR (CLEAR); BACTERIA, URINE AUTO NEGATIVE (NEGATIVE); BILIRUBIN, URINE AUTO NEGATIVE (NEGATIVE); BLOOD, URINE BLOOD 1+ (NEGATIVE); COLOR, URINE STRAW (YELLOW); GLUCOSE, URINE (UA) AUTO NEGATIVE (NEGATIVE); KETONE, URINE AUTO TRACE mg/dL (NEGATIVE); LEUKOCYTE ESTERASE, URINE AUTO NEGATIVE (NEGATIVE); NITRITE, URINE AUTO NEGATIVE (NEGATIVE); PROTEIN, URINE AUTO NEGATIVE (NEGATIVE); RBC, URINE AUTO 0 /HPF (0-3); SPECIFIC GRAVITY URINE AUTO 1.016 (1.002-1.035); SQUAMOUS EPITHELIAL CELL UR AU 0 /HPF (0-6); UROBILINOGEN, URINE AUTO 0.2 mg/dL (0.0-2.0); WBC, URINE AUTO 0 /HPF (0-3)
[2024-04-13] MEDS ORDERED: VANCOMYCIN HCL 500 MG in DEXTROSE 5% (D5W) MINI-BAG PLU 100 ML IV SCH (04:55)
[2024-04-13 05:03] LABS: AMPHETAMINES LEVEL URINE NEGATIVE (NEGATIVE); BARBITURATES URINE NEGATIVE (NEGATIVE); CANNABINOIDS URINE NEGATIVE (NEGATIVE); COCAINE METABOLITE URINE NEGATIVE (NEGATIVE); METHADONE URINE NEGATIVE (NEGATIVE); OPIATES URINE NEGATIVE (NEGATIVE); PHENCYCLIDINE URINE NEGATIVE (NEGATIVE)
[2024-04-13 05:30] LABS: BENZODIAZEPINES URINE POSITIVE (NEGATIVE)
[2024-04-13] MEDS: ONDANSETRON 4MG 2ML VIAL IV ONE (05:43)
[2024-04-13] MEDS: fentaNYL 100 MCG/2 ML INJECTION IV ONE ×2 (05:47→06:24)
[2024-04-13] MEDS: MIDAZOLAM INJ 2MG/2ML VIAL IV PRN (05:50)
[2024-04-13] MEDS ORDERED: LEVOTHYROXINE 100MCG (0.1MG) 5ML SDV PF (SOLUTION FORM) IV SCH (06:00)
[2024-04-13] MEDS: propofoL 200 MG/20 ML VIAL IV.PROC PRN (06:07)
[2024-04-13 06:41] LABS: THYROID STIMULATING HORMONE 0.094 uIU/ML (0.55-4.78)
[2024-04-13] MEDS: NS 1,000 ML IV SCH (07:30)
[2024-04-13] MEDS ORDERED: ACYCLOVIR IV SCH ×2 (08:00→16:00)
[2024-04-13] MEDS ORDERED: NS IV SCH ×2 (08:00→16:00)
[2024-04-13 08:07] LABS: FREE T4 1.24 NG/DL (0.89-1.76)
[2024-04-13] MEDS: dexAMETHasone 20MG/5ML VIAL IV SCH (08:54)
[2024-04-13] MEDS: KCL 10MEQ/100ML SWI (KRUN) 10 MEQ in IV 1 EA IV SCH (08:55)
[2024-04-13] MEDS ORDERED: ENOXAPARIN 40MG/0.4ML SYRINGE (J1650 PER 10MG) SC SCH (09:00)
[2024-04-13] MEDS ORDERED: AMPICILLIN SOD 2 GM in DEXTROSE 5% (D5W) MINI-BAG PLU 100 ML IV SCH (09:00)
[2024-04-13] MEDS: ACETAMINOPHEN *IV* 1,000 MG in IV 1 EA IV PRN (10:34)
[2024-04-13 11:02] VITALS: BP 116/59; TEMP 101.9; O2SAT 98
[2024-04-13 12:00] VITALS: BP 95/55; TEMP 98.3; O2SAT 98
[2024-04-13] MEDS: VANCOMYCIN 1,000MG/200 ML IV BAG IV ONE (13:10)
[2024-04-13] MEDS: AMPICILLIN SOD 2 GM in DEXTROSE 5% (D5W) MINI-BAG PLU 100 ML IV SCH (14:18)
[2024-04-13 14:47] LABS: PROCALCITONIN 3.51 ng/ml
[2024-04-13] MEDS: CEFEPIME HCL 2 GM in DEXTROSE 5% (D5W) ADV/MINI-BAG 50 ML IV SCH (14:53)
[2024-04-13 16:00] VITALS: BP 106/63; TEMP 98.1; O2SAT 99
[2024-04-13] MEDS ORDERED: AMPICILLIN SOD/SULBACTAM SOD 1.5 GM in DEXTROSE 5% (D5W) ADV/MINI-BAG 50 ML IV SCH (16:40)
[2024-04-13] MEDS: VANCOMYCIN 1,000MG/200 ML IV BAG IV SCH (17:17)
[2024-04-13] MEDS: ACETAMINOPHEN 500 MG TAB PO PRN (18:16)
[2024-04-13 20:00] VITALS: BP 107/59; TEMP 98.1; O2SAT 98
[2024-04-13] MEDS: AMPICILLIN SOD/SULBACTAM SOD 3 GM in SODIUM CHLORIDE 0.9% 100ML ADD 100 ML IV SCH (21:45)
[2024-04-13] MEDS: KETOROLAC 30 MG/ML 1ML VIAL IV PRN (21:46)
[2024-04-13 23:13] LABS: BLOOD UREA NITROGEN 17 MG/DL (9-23); CALCIUM LEVEL 8.4 MG/DL (8.5-10.1); CARBON DIOXIDE LEVEL 21 MMOL/L (20-31); CHLORIDE LEVEL 111 MMOL/L (98-107); CREATININE FOR GFR 0.57 MG/DL (0.55-1.30); GLOMERULAR FILTRATION RATE > 60.0 (>60); GLUCOSE, FASTING 222 MG/DL (60-100); POTASSIUM SERUM 3.7 MMOL/L (3.5-5.1); SODIUM LEVEL 138 MMOL/L (136-145)
[2024-04-14] VITALS: BP 103/65; TEMP 97.8; O2SAT 98
[2024-04-14 04:00] VITALS: BP 111/68; TEMP 98.2; O2SAT 97
[2024-04-14] MEDS ORDERED: ASPI81TA26 PO (05:38)
[2024-04-14] MEDS ORDERED: MULTTAB20 PO (05:38)
[2024-04-14] MEDS ORDERED: IBUP80TA PO (05:38)
[2024-04-14] MEDS ORDERED: ACET-897 PO (05:38)
[2024-04-14] MEDS ORDERED: DOCU100C16 PO (05:38)
[2024-04-14] MEDS ORDERED: HOME MED LIST COMPLETE! XX SCH (05:40)
[2024-04-14] MEDS: LEVOTHYROXINE 75MCG TABLET (0.075MG) PO SCH (06:21)
[2024-04-14 07:44] LABS: HEMATOCRIT 28.7 % (36.0-47.0); HEMOGLOBIN 9.2 g/dl (12.0-15.5); MEAN CORPUSCULAR HEMOGLOBIN 26.6 pg (27.0-33.0); MEAN CORPUSCULAR HGB CONC 32.1 g/dl (32.0-36.5); MEAN CORPUSCULAR VOLUME 82.9 fl (80.0-96.0); PLATELET COUNT, AUTOMATED 157 10^3/uL (150-450); RED BLOOD COUNT 3.46 10^6/uL (4.00-5.40); WHITE BLOOD COUNT 16.9 10^3/uL (4.0-10.0)
[2024-04-14 08:09] VITALS: BP 120/53; TEMP 96.8; O2SAT 99
[2024-04-14 08:09] LABS: DOHLE BODIES 1+; LYMPHOCYTES 2 % (16-44); MONOCYTES 3 % (0-5); NEUTROPHILS 85 % (28-66)
[2024-04-14 08:10] LABS: ANISOCYTOSIS 1+; PLATELET ESTIMATE NORMAL (NORMAL)
[2024-04-14 08:11] LABS: HELMET CELLS 1+; OVALOCYTES 1+
[2024-04-14 08:15] LABS: BLOOD UREA NITROGEN 16 MG/DL (9-23); CALCIUM LEVEL 8.6 MG/DL (8.5-10.1); CARBON DIOXIDE LEVEL 20 MMOL/L (20-31); CHLORIDE LEVEL 110 MMOL/L (98-107); CREATININE FOR GFR 0.58 MG/DL (0.55-1.30); GLOMERULAR FILTRATION RATE > 60.0 (>60); GLUCOSE, FASTING 141 MG/DL (60-100); POTASSIUM SERUM 3.6 MMOL/L (3.5-5.1); SODIUM LEVEL 138 MMOL/L (136-145)
[2024-04-14 12:15] VITALS: BP 103/52; TEMP 97.6; O2SAT 97
[2024-04-14] MEDS: FIDAXOMICIN 200 MG TAB (DIFICID) PO SCH (18:30)
[2024-04-14 21:46] VITALS: BP 95/50; TEMP 97.4; O2SAT 100
[2024-04-15 07:54] LABS: BASO % 0.3 % (0.0-1.0); EOS # 0.1 10^3/uL (0.0-0.5); EOS % 1.1 % (0.0-3.0); HEMATOCRIT 26.4 % (36.0-47.0); HEMOGLOBIN 8.5 g/dl (12.0-15.5); LYMPH # 1.6 10^3/uL (1.5-5.0); LYMPH % 16.4 % (24.0-44.0); MEAN CORPUSCULAR HEMOGLOBIN 26.9 pg (27.0-33.0); MEAN CORPUSCULAR HGB CONC 32.2 g/dl (32.0-36.5); MEAN CORPUSCULAR VOLUME 83.5 fl (80.0-96.0); MONO # 0.6 10^3/uL (0.0-0.8); MONO % 6.3 % (2.0-8.0); NEUTROPHILS # 7.1 10^3/uL (1.5-8.5); PLATELET COUNT, AUTOMATED 141 10^3/uL (150-450); RED BLOOD COUNT 3.16 10^6/uL (4.00-5.40); WHITE BLOOD COUNT 9.5 10^3/uL (4.0-10.0)
[2024-04-15 08:13] LABS: BLOOD UREA NITROGEN 13 MG/DL (9-23); CALCIUM LEVEL 7.9 MG/DL (8.5-10.1); CARBON DIOXIDE LEVEL 22 MMOL/L (20-31); CHLORIDE LEVEL 115 MMOL/L (98-107); CREATININE FOR GFR 0.64 MG/DL (0.55-1.30); GLOMERULAR FILTRATION RATE > 60.0 (>60); GLUCOSE, FASTING 91 MG/DL (60-100); MAGNESIUM LEVEL 1.6 MG/DL (1.8-2.4); POTASSIUM SERUM 3.3 MMOL/L (3.5-5.1); SODIUM LEVEL 143 MMOL/L (136-145)
[2024-04-15 09:00] VITALS: BP 98/53; TEMP 97.4; O2SAT 100
[2024-04-15] MEDS: POTASSIUM CHLORIDE 10MEQ SR TABLET PO ONE (09:16)
[2024-04-15] MEDS: FIDAXOMICIN 200 MG TAB (DIFICID) PO SCH (09:17)
[2024-04-15] MEDS ORDERED: MAG SULF 1GM/100ML (MAG RUN) 1 GM in IV 1 EA IV SCH (10:00)
[2024-04-15] MEDS ORDERED: FIDA200TA PO (10:46)
[2024-04-15] MEDS ORDERED: AUGM500T34 PO (10:46)
[2024-04-15] MEDS: MAGNESIUM OXIDE 400MG TAB (MAG-OX) PO ONE (12:32)
== END 2024-04-15 13:34 | disposition home or self-care (01) | DRG 871 ==
LOC: M ED 01:12 → M ED INP 08:07 → M ICU 10:55
PROVIDERS: ADMIT Student in an Organized Health Care Education/Training Program; ATTEND Student in an Organized Health Care Education/Training Program
DX: A41.9 Sepsis, unspecified organism (principal); G93.41 Metabolic encephalopathy; A04.72 Enterocolitis due to Clostridium difficile, not specified as recurrent; N13.30 Unspecified hydronephrosis; N17.9 Acute kidney failure, unspecified; I48.91 Unspecified atrial fibrillation; E03.9 Hypothyroidism, unspecified; N61.0 Mastitis without abscess; R33.9 Retention of urine, unspecified; E87.6 Hypokalemia; Z79.899 Other long term (current) drug therapy; Z79.82 Long term (current) use of aspirin

== ENCOUNTER → 2024-09-13 | Outpatient (REF) | payer OTHER ==
[~2024-09-13] MED LIST changes: +ASPI81TA26 PO; +AUGM500T34 PO; +DOCU100C16 PO; +FIDA200TA PO; +IBUP80TA PO; +MULTTAB20 PO
[2024-09-13 19:04] LABS: FREE T4 1.09 NG/DL (0.89-1.76); THYROID STIMULATING HORMONE 8.643 uIU/ML (0.55-4.78)
== END ==
LOC: M LABWUC 17:20
PROVIDERS: ATTEND Nurse Practitioner Family
DX: E89.0 Postprocedural hypothyroidism (principal); C73 Malignant neoplasm of thyroid gland

== ENCOUNTER → 2024-09-23 | Outpatient (REF) | payer OTHER ==
[2024-09-27 13:37] LABS: THRYOGLOBULIN ANTIBODIES (ATA) < 1 IU/mL (< or = 1); THYROGLOBULIN QUANTITATIVE 2.7 ng/mL (2.8-40.9)
== END ==
LOC: M LAB 11:46
PROVIDERS: ATTEND Nurse Practitioner Family
DX: C73 Malignant neoplasm of thyroid gland (principal); E89.0 Postprocedural hypothyroidism

== ENCOUNTER → 2025-01-31 | Outpatient (CLI) | payer OTHER ==
[2025-01-31 12:44] LABS: HCG, SERUM QUALITATIVE NEGATIVE (NEGATIVE)
== END ==
LOC: M LAB 10:27
PROVIDERS: ATTEND Nurse Practitioner Family
DX: E89.0 Postprocedural hypothyroidism (principal)

== ENCOUNTER → 2025-03-07 | Outpatient (CLI) | payer OTHER ==
[2025-03-07 15:36] LABS: HCG, SERUM QUALITATIVE NEGATIVE (NEGATIVE)
== END ==
LOC: M PLALAB 11:32
PROVIDERS: ATTEND Nurse Practitioner Family
DX: C73 Malignant neoplasm of thyroid gland (principal)

== ENCOUNTER 2025-03-26 10:13 | Emergency (ER) | payer OTHER ==
[~2025-03-26] VITALS: Ht 162.6 cm; Wt 97.0 kg
[2025-03-26 11:36] LABS: BASO # 0.0 10^3/uL (0.0-0.2); BASO % 0.4 % (0.0-1.0); EOS # 0.1 10^3/uL (0.0-0.5); EOS % 1.7 % (0.0-3.0); LYMPH # 1.3 10^3/uL (1.5-5.0); LYMPH % 16.8 % (24.0-44.0); MONO # 0.6 10^3/uL (0.0-0.8); MONO % 8.1 % (2.0-8.0); NEUTROPHILS # 5.7 10^3/uL (1.5-8.5); NEUTROPHILS % 72.9 % (36.0-66.0); PLATELET COUNT, AUTOMATED 221 10^3/uL (150-450)
[2025-03-26 11:59] LABS: ALT/SGPT 29 U/L (7.0-40); AST/SGOT 26 U/L (<34); CALCIUM LEVEL 8.3 MG/DL (8.5-10.1); CARBON DIOXIDE LEVEL 26 MMOL/L (20-31); CHLORIDE LEVEL 106 MMOL/L (98-107); CREATININE FOR GFR 0.70 MG/DL (0.55-1.30); GLOMERULAR FILTRATION RATE > 90.0 (>60); POTASSIUM SERUM 4.6 MMOL/L (3.5-5.1); SODIUM LEVEL 144 MMOL/L (136-145)
[2025-03-26] MEDS ORDERED: ISOVUE-370 76% 100 ML VIAL As Ordered ONE (12:27)
[2025-03-26 14:54] LABS: KETONE, URINE AUTO RFX NEGATIVE (NEGATIVE); LEUKOCYTE ESTERASE UR AUTO RFX NEGATIVE (NEGATIVE); NITRITE, URINE AUTO RFX NEGATIVE (NEGATIVE); RBC, URINE AUTO RFX 1 /HPF (0-3); SQUAM EPITHELIAL CELL UR AURFX 0 /HPF (0-6); WBC, URINE AUTO RFX 0 /HPF (0-3)
[2025-03-26 15:15] VITALS: BP 115/56; O2SAT 100
[2025-03-26 15:42] VITALS: TEMP 97.9
== END 2025-03-26 15:42 | disposition home or self-care (01) ==
LOC: M ED 10:13
DX: N83.201 Unspecified ovarian cyst, right side (principal); N83.202 Unspecified ovarian cyst, left side; C73 Malignant neoplasm of thyroid gland; Z91.030 Bee allergy status; Z79.1 Long term (current) use of non-steroidal anti-inflammatories (NSAID); Z79.2 Long term (current) use of antibiotics; Z79.899 Other long term (current) drug therapy
CPT/HCPCS: 36415; 74177; 80053; 81001; 83690; 85025; 99284; Q9967

== ENCOUNTER → 2025-06-01 | Outpatient (CLI) | payer OTHER | LOC: M WHC 09:32 | PROVIDERS: ATTEND Obstetrics & Gynecology | DX: Z12.31 Encounter for screening mammogram for malignant neoplasm of breast (principal); Z92.3 Personal history of irradiation; R92.333 Mammographic heterogeneous density, bilateral breasts; R92.8 Other abnormal and inconclusive findings on diagnostic imaging of breast ==